=== PATIENT | male | born 1965 ===

== ENCOUNTER 2020-03-11 13:24 | Emergency (ER) | payer OTHER | END 2020-03-11 13:54 | disposition home or self-care (01) | LOC: JVIRT 13:24 | DX: Z11.59 Encounter for screening for other viral diseases (principal) | CPT/HCPCS: C9803; G2251-GT; Q3014-GT; U0003 ==

== ENCOUNTER 2020-03-17 14:14 | Emergency (ER) | payer OTHER | END 2020-03-17 14:32 | disposition home or self-care (01) | LOC: JVIRT 14:14 | DX: Z20.822 Contact with and (suspected) exposure to COVID-19 (principal) | CPT/HCPCS: C9803; Q3014-GT; U0003 ==